=== PATIENT | female | born 1995 | race Caucasian/White ===

== ENCOUNTER 2017-10-21 11:14 | Outpatient (CLI) | payer OTHER ==
[2017-10-21] MEDS ORDERED: PRENATAL ONE T1 EACH PO (13:06)
== END 2017-10-21 17:17 | disposition home or self-care (01) ==
LOC: OBS/DEL 11:14
DX: O47.1 False labor at or after 37 completed weeks of gestation (principal)

== ENCOUNTER 2017-10-27 09:29 | Inpatient (IN) | payer OTHER ==
[~2017-10-27] VITALS: Ht 157.5 cm; Wt 139.0 kg
[~2017-10-27 09:29] MED LIST: PRENATAL ONE T1 EACH PO
== END 2017-10-31 15:20 | DRG 775 ==
LOC: OB/GYN 09:29 → LDR 09:43 → OB/GYN 09:43
PROC: 10E0XZZ Delivery of Products of Conception, External Approach (ICD-10-PCS; principal; 2017-10-27)
PROC: 4A1HXCZ Monitoring of Products of Conception, Cardiac Rate, External Approach (ICD-10-PCS; 2017-10-27)
DX: O62.3 Precipitate labor (principal); Z3A.38 38 weeks gestation of pregnancy; Z37.0 Single live birth